=== PATIENT | female | born 1980 | race Caucasian/White ===

== ENCOUNTER → 2023-01-09 11:14 | Outpatient (BNVA) | payer MEDICAID, SELFPAY | PROVIDERS: PCP Nurse Practitioner; Visit Provider Nurse Practitioner | DX: Z79.899 Other long term (current) drug therapy (principal); F41.0 Panic disorder [episodic paroxysmal anxiety]; F33.1 Major depressive disorder, recurrent, moderate; F41.1 Generalized anxiety disorder | CPT/HCPCS: 80061; 83036; 84146 ==

== ENCOUNTER 2023-04-05 15:29 | Inpatient (IN) | payer MEDICAID, SELFPAY ==
[2023-04-05 15:33] VITALS: BP 145/90; PULSE 84; RESP 18; TEMP 36.7; O2SAT 97
--- NOTE | 2023-04-05 15:43 | W.ED.PSYCHS ---
HPI - Psych General: Chief Complaint: Psychiatric Symptoms Stated Complaint: 96 HR HLD Time Seen by Provider: 04/05/23 15:33 Source: patient and police Mode of arrival: other (PD) Limitations: no limitations History of Present Illness: This patient was transported by local police to the emergency department for 96-hour hold and mental health evaluation. Currently family members were concerned about her behavior over the past few days likely precipitated by her daughter's recent hospitalization for mental health evaluation as well. They provided affidavit's to the police regarding this patient's behavior and therefore she is transported to the emergency department. The patient freely admits that she is being treated for schizophrenia bipolar disorder other mental health diagnoses and states that she has been faithful to her prescribed medication. She states that she does not have active thoughts of harming yourself or others. complaint: feels depressed Associated psychiatric symptoms: depression Associated symptoms: Deny depression Review of Systems Const: Denies: fever(s) or chills Eyes: Denies: change in vision ENMT: Denies: throat pain, odynophagia, nasal discharge or nasal congestion Card: Denies: chest pain, palpitations or irregular heart rhythm Resp: Denies: dyspnea, productive cough or non-productive cough GI: Denies: abdominal pain, nausea or vomiting : Denies: flank pain, difficulty voiding or dysuria Musc: Denies: neck pain, back pain, extremity pain or extremity swelling Skin/Breast: Denies: rash Neuro: Denies: headache(s), numbness in extremities or weakness in extremities Psych: Denies: anxiety, depression, mood swings or panic attacks [facility] PFSH: Medical History On combination antipsychotic drug therapy Psychiatric care Physical Exam Narrative: EXAM NARRATIVE: She makes good eye contact is somewhat tearful answers questions in a goal-directed fluent fashion Const: COMMON NORMALS: patient oriented x3 and no limitations GENERAL APPEARANCE: cooperative and anxious HENMT: COMMON NORMALS: normocephalic, Normal nasal mucous membranes and turbinates present and moist oral mucous membranes HEAD & SCALP: normocephalic NOSE: Normal nasal mucous membranes and turbinates present Eye: COMMON NORMALS: Equal, round and reactive pupils present, EOMs intact bilaterally and conjunctivae normal CONJUNCTIVA: Yes conjunctivae normal PUPIL: Yes Equal, round and reactive pupils present Neck/C-Spine: COMMON NORMALS: full ROM Resp: COMMON NORMALS: normal respiratory effort and No use of accessory muscles EFFORT & INSPECTION: Yes able to speak in complete sentences Cardio: COMMON NORMALS: regular rate, regular rhythm and Peripheral pulses 2+ throughout RATE: regular rate RHYTHM: regular rhythm PERIPHERAL PULSES: Peripheral pulses 2+ throughout GI: COMMON NORMALS: Normal to inspection, nondistended, normoactive bowel sounds present : COMMON NORMALS: Yes no CVA tenderness BLADDER/KIDNEY EXAM: Yes no CVA tenderness Back/Pelvis: COMMON NORMALS: no CVA tenderness and thoracic and lumbar spine normal to inspection Extremity: COMMON NORMALS: normal to inspection, full ROM and no pedal edema Neuro: COMMON NORMALS: patient oriented x3, moves all extremities, no focal motor deficits and no sensory deficits noted CRANIAL NERVES: Yes CN normal except as noted Psych: COMMON NORMALS: mental status grossly normal and cooperative ATTITUDE: Yes calm ACTIVITY/MOTOR BEHAVIOR: Yes appropriate eye contact SPEECH: Yes rapid MOOD & AFFECT: Yes tearful THOUGHT PROCESS: disorganized THOUGHT CONTENT: Yes Normal thought content present ATTENTION/CONCENTRATION: Yes attention grossly intact MEMORY/COGNITION: Yes memory grossly intact INSIGHT: Fair insight present (Psych) JUDGEMENT: Fair judgement present (Psych) Skin: COMMON NORMALS: no rashes or lesions noted and turgor normal GENERAL SKIN EXAM: no rashes or lesions noted and turgor normal Course Vital Signs: Vital signs: Vital Signs Temperature 98.1 F 04/05/23 15:33 Pulse Rate 84 04/05/23 15:33 Respiratory Rate 18 04/05/23 15:33 Blood Pressure 145/90 04/05/23 15:33 Pulse Oximetry 97 04/05/23 15:33 Oxygen Delivery Me thod Room Air 04/05/23 15:33 MDM - Psych Medical Decision Making Patient with longstanding history of depression presented to the emergency department by police department with for 96-hour hold with associated affidavits from family members concerned about her behavior and concerned about possible suicidality. Patient was evaluated and she was adamant that she was not suicidal but will be evaluated per 96-hour hold Lab Data I reviewed the patient's lab results. 04/05/23 16:28 04/05/23 16:28 Laboratory Results WBC 6.79 10^3/uL (3.29-11.43) 04/05/23 16: RBC 4.38 10^6/uL (3.85-5.65) 04/05/23 16: Hgb 13.10 g/dL (11.27-16.99) 04/05/23 16: Hct 40.9 % (36-47) 04/05/23 16: MCV 93.4 fl (85-98) 04/05/23 16: MCH 29.9 pg (27-33) 04/05/23 16: MCHC 32.0 g/dL (30-55) 04/05/23 16: RDW 13.4 % (12.1-15.1) 04/05/23 16: Plt Count 255 10^3/cmm (157-399) 04/05/23 16: MPV 9.6 fL (7.4-10.4) 04/05/23 16: Neut % (Auto) 72.6 % 04/05/23 16: Lymph % (Auto) 20.8 % 04/05/23 16: Walsh % (Auto) 4.7 % 04/05/23 16: Eos % (Auto) 1.2 % 04/05/23 16: Baso % (Auto) 0.4 % 04/05/23 16: Neut # (Auto) 4.93 10^3/uL (1.8-7.7) 04/05/23 16: Lymph # (Auto) 1.4 10^3/uL (0.8-4.8) 04/05/23 16: Walsh # (Auto) 0.3 10^3/uL (0.2-0.9) 04/05/23 16: Eos # (Auto) 0.1 10^3/uL (0.0-0.8) 04/05/23 16: Baso # (Auto) 0.0 10^3/uL (0.0-0.1) 04/05/23 16: Nucleated RBC % (auto) 0 % 04/05/23: Nucleated RBCs # 0.0 /100WBC 04/05/23 16: Sodium 138 mmol/L (136-145) 04/05/23 16: Potassium 4.1 mmol/L (3.5-5.1) 04/05/23 16:28 Chloride 105 mmol/L (98-107) 04/05/23 16:28 Carbon Dioxide 23 mmol/L (22-29) 04/05/23 16:28 Anion Gap 14.1 (5-19) 04/05/23 16:28 BUN 14 mg/dL (6-20) 04/05/23 16:28 Creatinine 0.8 mg/dL (0.5-0.9) 04/05/23 16:28 GFR Calculation 79.0 mL/min (90-130) L 04/05/23 16:28 Glucose 100 mg/dL (65-115) 04/05/23 16:28 Calculated Osmolality 287 mOsm/kg (285-295) 04/05/23 16:28 Calcium 9.1 mg/dL (8.5-10.5) 04/05/23 16:28 Total Bilirubin 0.2 mg/dL (0.15-1.2) 04/05/23 16:28 AST 14 U/L (0-32) 04/05/23 16:28 ALT 10 U/L (0-33) 04/05/23 16:28 Alkaline Phosphatase 55 U/L (35-105) 04/05/23 16:28 Total Protein 7.4 g/dL (6.6-8.7) 04/05/23 16:28 Albumin 4.2 g/dL (3.5-5.2) 04/05/23 16:28 Globulin 3.2 g/dL (1.3-4.6) 04/05/23 16:28 Salicylates < 0.3 mg/dL (3-10) L 04/05/23 16:28 Acetaminophen < 5.0 ug/mL (10-30) L 04/05/23 16:28 No radiology studies performed this visit Discharge Plan Discharge Patient Disposition: Admitted As Inpatient Clinical Impression: Depression, Encounter for medical clearance for patient hold Condition: Stable Prescriptions: No Action topiramate 50 mg capsule,extended release 24hr 50 mg PO BID sumatriptan succinate 50 mg tablet See Rx Instructions PO .COMPLEX PRN (Reason: Headache) Rx Instructions: take 1 tab at onset of headache; if no relief may repeat 1 tab after at least 2 hrs; max = 4 tabs/24 hr PO buspirone 10 mg tablet 10 mg PO BID Qty: 60 1RF sertraline 100 mg tablet 200 mg PO DAILY Qty: 60 1RF olanzapine 20 mg tablet 20 mg PO QPM Referrals: Gely Bassett FNP-C [Primary Care Provider] - Coding Level of Care Code ED Peer Health Promoter for Laila Castro
[2023-04-05 17:10] LABS: Basophils % 0.4 %; Eosinophils # 0.1 10^3/uL (0.0-0.8); Eosinophils % 1.2 %; Hematocrit 40.9 % (36-47); Lymphocytes # 1.4 10^3/uL (0.8-4.8); Lymphocytes % 20.8 %; Mean Corpuscular Hemoglobin 29.9 pg (27-33); Mean Corpuscular Volume 93.4 fl (85-98); Mean Platelet Volume 9.6 fL (7.4-10.4); Monocytes # 0.3 10^3/uL (0.2-0.9); Monocytes % 4.7 %; Neutrophils # 4.93 10^3/uL (1.8-7.7); Neutrophils % 72.6 %; Nucleated Red Blood Cells % 0 %; Platelet Count 255 10^3/cmm (157-399); Red Blood Count 4.38 10^6/uL (3.85-5.65); Red Cell Distribution Width 13.4 % (12.1-15.1); White Blood Count 6.79 10^3/uL (3.29-11.43)
[2023-04-05 17:43] LABS: Alanine Aminotransferase 10 U/L (0-33); Albumin Level 4.2 g/dL (3.5-5.2); Alkaline Phosphatase 55 U/L (35-105); Anion Gap 14.1 (5-19); Aspartate Amino Transferase 14 U/L (0-32); Blood Urea Nitrogen 14 mg/dL (6-20); Calcium 9.1 mg/dL (8.5-10.5); Carbon Dioxide 23 mmol/L (22-29); Chloride 105 mmol/L (98-107); Globulin 3.2 g/dL (1.3-4.6); Glucose 100 mg/dL (65-115); Osmolality Calculated 287 mOsm/kg (285-295); Potassium 4.1 mmol/L (3.5-5.1); Sodium 138 mmol/L (136-145); Total Bilirubin 0.2 mg/dL (0.15-1.2); Total Protein 7.4 g/dL (6.6-8.7)
[2023-04-05] MEDS: nicotine 21 mg Patch 1 PATCH TRANSDERMA (17:44)
[2023-04-05 17:57] LABS: Acetaminophen < 5.0 ug/mL (10-30); Salicylate < 0.3 mg/dL (3-10)
[2023-04-05 17:59] VITALS: BP 138/93; PULSE 85; RESP 18; TEMP 36.6; O2SAT 99
--- NOTE | 2023-04-05 18:59 | PC.NURSE ---
96 hr rights reviewed with patient with assistance gemma FLORES founder and chief executive officer @[phone]. Patient verbalized understanding. Patient copy left @bedside with patient. No verbalized needs at this time.
[2023-04-05] MEDS: OLANZapine 5 mg ODT PO (20:29)
--- NOTE | 2023-04-05 21:08 | PC.ADMIT ---
1997 CR [id number] Admission Note: The patient,Elsy Eugene,43 y/o, was given written information regarding hospital policies, unit procedures and contact persons. Patient's smoking status: . Vital Signs - 8 hr 04/05/23 15:33 04/05/23 17:59 04/05/23 21:01 Temperature 98.1 F 97.9 F Pulse Rate 84 85 Respiratory Rate 18 18 Blood Pressure 145/90 138/93 Pulse Oximetry 97 99 Oxygen Delivery Method Room Air Room Air Room Air ADMITTED FROM ER VIA WHEELCHAIR, SECURITY AND ER STAFF AT 1999. PT IS ON A 96 HOUR HOLD THAT ENDS ON 04/11/23 AT 1529. PT STATES SHE IS HEAR BECAUSE MY COUSIN CALLED MY FAMILY AND SAID I WAS GOING TO HURT MYSELF WHICH IS ALL LIES. PT IS VERY TALKATIVE AND RAMBLING SPEECH IN EXCESS. VERY FOCUSED ON SELF. DENIES SI/HI AT THIS TIME. DOES ENDORSE IN THE PAST THAT SHE SEES THINGS THAT AREN'T THERE I GUESS AND HEAR VOICES. PT DECLINES [facility] TODAY. PT REPORTS SHE SHES [facility] ADMIN AT [facility]. MEDICATIONS RECONCILED. REPORTS DEPRESSION AND ANXIETY. RATES ANXIETY 7/10 AND DEPRESSION 8/10. FLOAT TENDER ADMINISTERED ZYDIS 5 MG ORDERED FOR ANXIETY. VERIFIES COMPAZINE HER ONLY ALLERGY. DECLINES FLU VACCINE. PT WAS ORIENTATED TO UNIT, WANDED AND DRESSED OUT. NO SKIN ISSUES WERE OBSERVED. ORIENTATED TO UNIT AND SAFETY RULES WHILE HERE IN THE UNIT. VERBALIZES UNDERSTANDING. ALL QUESTIONS ANSWERED AND SUPPORT WAS VOICED. DENIES PAIN.
[2023-04-05] MEDS: ibuprofen 600 mg Tablet PO (21:20)
[2023-04-06] MEDS: hyDROXYzine 25 mg Capsule 50 MG PO ×3 (01:41→20:52)
[2023-04-06] MEDS: OLANZapine 5 mg ODT PO (01:41)
[2023-04-06] MEDS: trazodone 50 mg Tablet PO (01:41)
[2023-04-06 06:00] VITALS: RESP 16
[2023-04-06 08:00] VITALS: BP 133/99; PULSE 107; RESP 18; TEMP 36.9; O2SAT 100
[2023-04-06] MEDS: BuSPIRONE 10 mg Tablet PO ×2 (08:26→20:51)
[2023-04-06] MEDS: topiramate 25 mg Tablet 50 MG PO ×2 (08:27→20:51)
[2023-04-06] MEDS: sertraline 100 mg Tablet 200 MG PO (08:27)
[2023-04-06] MEDS: acetaminophen 325 mg Tablet 650 MG PO (08:29)
[2023-04-06] MEDS: nicotine 21 mg Patch 1 PATCH TRANSDERMA (08:30)
[2023-04-06 12:14] LABS: HCG Qualitative Urine. Negative (Negative)
[2023-04-06 12:24] LABS: Amphetamines Screen Urine Negative (Negative); Barbiturates Screen Urine Negative (Negative); Benzodiazepines Screen Urine Negative (Negative); Cocaine Screen Urine Negative (Negative); Opiate Screen Urine Negative (Negative); PCP Screen Urine Negative (Negative); THC Screen Urine Negative (Negative)
[2023-04-06 14:00] VITALS: BP 124/74; PULSE 82; RESP 18; TEMP 36.8; O2SAT 96
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
[2023-04-06] MEDS: ibuprofen 600 mg Tablet PO (15:12)
[2023-04-06] MEDS: OLANZapine 10 mg TABLET 20 MG PO (20:51)
[2023-04-06] MEDS: nicotine 2 mg Gum BUCCAL (21:10)
[2023-04-06 22:00] VITALS: BP 141/114; PULSE 113; RESP 18; TEMP 36.5; O2SAT 97
[2023-04-07 06:00] VITALS: BP 135/86; PULSE 107; RESP 18; TEMP 36.6; O2SAT 98
[2023-04-07] MEDS: nicotine 2 mg Gum BUCCAL (06:31)
[2023-04-07] MEDS: ibuprofen 600 mg Tablet PO ×2 (08:21→15:29)
[2023-04-07] MEDS: sertraline 100 mg Tablet 200 MG PO (08:21)
[2023-04-07] MEDS: topiramate 25 mg Tablet 50 MG PO ×2 (08:21→21:14)
[2023-04-07] MEDS: BuSPIRONE 10 mg Tablet PO ×2 (08:21→21:13)
[2023-04-07] MEDS: nicotine 21 mg Patch 1 PATCH TRANSDERMA (08:22)
--- NOTE | 2023-04-07 12:21 | P.NPUPN_ITS ---
Subjective NPU 2 Subjective: 43-year-old female with a history of dean izoaffective disorder depressed type admitted with suicidal ideation and worsening depression. Patient had reported considerable worry regarding her daughter who was currently receiving psychiatric treatment and locked facility. She reported that she had slept better. She had continued to endorse depression and reported that she was motivated to try to get help for her depression. She had reported that she had not been receiving outpatient psychotherapy as of yet. She reported a history of numerous trials on medications. She had endorsed low energy and struggles with concentration. She reported that she had felt that the buspirone had been helpful for her anxiety as well. She had reported frequent panic attacks but reported that most of the time they were associated with triggers. Mental Status Exam 2 MSE Comments: Is casually dressed white female with her stated age, slightly overweight with normal gait. Her hygiene was fair. There was no evidence of any abnormal involuntary motor movements tics or tremors appreciated. She was alert and oriented to person place time and situation. Her speech was normal in regards to rate rhythm and prosody. Her eye contact was fair. There was evidence of mild to moderate psychomotor retardation. Her mood was described as down. Her affect appeared restricted in range and mood congruent. Her thought process was linear, logical and goal-directed. Her thought content showed no evidence of active homicidal ideation with no suicidal ideation reported today. She denied any auditory or visual hallucinations. There was no evidence of any delusional thinking. She did not appear to be responding internal stimuli. Her attention span appeared fair. Her insight appeared limited. Her judgment appeared poor. Her impulse control appeared poor. Vitals/I&O/Wt Last Vital Signs Temp 97.8 F 04/07/23 06:00 Pulse 107 H 04/07/23 06:00 Resp 18 04/07/23 06:00 BP 135/86 04/07/23 06:00 Pulse Ox 98 04/07/23 06:00 O2 Del Method Room Air 04/07/23 06:00 Weight last 48 hrs Weight 106.141 kg Data NPU 04/05/23 16:28 04/05/23 16:28 A&P Assessment and plan (1) Schizoaffective disorder, depressive type: (2) Suicidal ideation: (3) Depressed mood: Plan 43-year-old white female an extended history of mental health issues with multiple inpatient hospitalizations admitted on a 96-hour hold with concerns about depression and suicidal statements with a history of schizoaffective disorder depressed type. 1. Encourage individual, group and milieu therapy. 2. Recommend sober living treatment at the highest level of care to which the patient is willing to commit. 3. Continue q-15 minute checks for safety.? 4.? Restart current medications with addition of wellbutrin xl 150mg in am and continuing Zyprexa 20mg at night along with buspar 10mg bid, and zoloft 200mg daily. Involuntary Hold Information 2 96 Hour Hold: 96 Hour Involuntary Admission: Yes 96 Hour Hold Ending Date: 04/11/23 96 Hour Hold Ending Time: 15:29 Attestations NPU 2 Medical Necessity Statement*: Patient hospitalization is medically necessary and deemed to be the clinically appropriate decision at this time. The patient will be started on medications and medications will be adjusted as clinically indicated. The patient likely length of stay is 2-3 days. Coding Level of Care Code Acute Code for [facility] Diagnoses Schizoaffective disorder, depressive type F25.1 Suicidal ideation R45.851 Depressed mood R45.89
[2023-04-07] MEDS: buPROPion XL (24 HR) 150 mg Tablet PO (12:40)
[2023-04-07 13:58] VITALS: BP 121/79; PULSE 117; RESP 16; TEMP 36.3; O2SAT 99
[2023-04-07 20:34] VITALS: BP 139/75; PULSE 84; RESP 18; TEMP 36.3; O2SAT 99
[2023-04-07] MEDS: OLANZapine 10 mg TABLET 20 MG PO (21:14)
[2023-04-07] MEDS: acetaminophen 325 mg Tablet 650 MG PO (23:14)
[2023-04-08 06:00] VITALS: BP 115/76; PULSE 96; RESP 16; TEMP 36.3; O2SAT 96
[2023-04-08] MEDS: sertraline 100 mg Tablet 200 MG PO (09:11)
[2023-04-08] MEDS: BuSPIRONE 10 mg Tablet PO (09:11)
[2023-04-08] MEDS: buPROPion XL (24 HR) 150 mg Tablet PO (09:11)
[2023-04-08] MEDS: topiramate 25 mg Tablet 50 MG PO (09:11)
[2023-04-08] MEDS: acetaminophen 325 mg Tablet 650 MG PO (11:43)
[2023-04-08] MEDS: nicotine 21 mg Patch 1 PATCH TRANSDERMA (11:44)
[2023-04-08] MEDS: ibuprofen 600 mg Tablet PO (13:16)
[2023-04-08 14:00] VITALS: BP 139/88; PULSE 88; RESP 13; TEMP 36.8; O2SAT 100
[2023-04-08] MEDS: hyDROXYzine 25 mg Capsule 50 MG PO (15:43)
--- NOTE | 2023-04-08 16:20 | P.NPUPN_ITS ---
Subjective NPU 2 Subjective: 43-year-old female with a history of dean izoaffective disorder depressed type admitted with suicidal ideation and worsening depression. Patient had reported considerable worry regarding her daughter who was currently receiving psychiatric treatment and locked facility. She reported that she had slept better. She had continued to endorse depression and reported that she was motivated to try to get help for her depression. She had reported that she had not been receiving outpatient psychotherapy as of yet. She reported a history of numerous trials on medications. She had endorsed low energy and struggles with concentration. She reported that she had felt that the buspirone had been helpful for her anxiety as well. She had reported frequent panic attacks but reported that most of the time they were associated with triggers. Vitals/I&O/Wt Last Vital Signs Temp 98.3 F 04/08/23 14:00 Pulse 88 04/08/23 14:00 Resp 13 04/08/23 14:00 BP 139/88 04/08/23 14:00 Pulse Ox 100 04/08/23 14:00 O2 Del Method Room Air 04/08/23 06:00 Weight last 48 hrs Weight 106.141 kg Data NPU 04/05/23 16:28 04/05/23 16:28 Involuntary Hold Information 2 96 Hour Hold: 96 Hour Involuntary Admission: Yes 96 Hour Hold Ending Date: 04/11/23 96 Hour Hold Ending Time: 15:29 Coding Level of Care Code Acute Code for [facility]
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
[2023-04-08 16:55] VITALS: BP 139/88; PULSE 88; RESP 13; TEMP 36.8; O2SAT 100
== END 2023-04-08 18:35 | disposition home or self-care (01) | DRG 885 ==
LOC: ER 18:02 → NP 18:04
PROVIDERS: Admitting Provider Psychiatry & Neurology Psychiatry; Emergency Provider Emergency Medicine; PCP Nurse Practitioner; Visit Provider Psychiatry & Neurology Psychiatry
DX: F25.1 Schizoaffective disorder, depressive type (principal); R45.851 Suicidal ideations; Z91.51 Personal history of suicidal behavior; F17.210 Nicotine dependence, cigarettes, uncomplicated; Z62.810 Personal history of physical and sexual abuse in childhood; Z63.79 Other stressful life events affecting family and household
CPT/HCPCS: 36415; 80053; 80306; 80307; 81025; 85025; 97150; 97165; 99285

== ENCOUNTER → 2023-07-09 11:20 | Outpatient (BNVA) | payer OTHER, SELFPAY | PROVIDERS: PCP Nurse Practitioner; Visit Provider Nurse Practitioner | DX: F41.1 Generalized anxiety disorder (principal); F25.1 Schizoaffective disorder, depressive type; Z79.899 Other long term (current) drug therapy | CPT/HCPCS: 80061; 83036 ==

== ENCOUNTER 2023-09-24 13:24 | Outpatient (CLI) | payer MEDICAID, SELFPAY ==
[2023-07-30 14:40] VITALS: BP 120/75; BMI 38.9
[2023-09-02 10:04] VITALS: BP 120/75; BMI 38.9
--- NOTE | 2023-09-24 13:20 | MM_ITS ---
WS: [id number] BILATERAL 3D TOMOSYNTHESIS DIGITAL SCREENING MAMMOGRAPHY WITH CAD CLINICAL INFORMATION: SCREENING HISTORY: Screening mammogram. No current complaints. COMPARISON: Baseline TECHNIQUE: Bilateral CC and MLO views. FINDINGS: The breasts are composed of heterogeneous fibroglandular density tissue, which can limit the detectio n of small underlying mass lesions. No suspicious mass, asymmetry, calcifications, or architectural d istortion. No evidence of malignancy. A few tiny incidental punctate calcifications. Incidental axill conchis tail lymph nodes. Dense heterogeneous tissue RIGHT greater than LEFT anterior breast. MM/[place] [id number] IMPRESSION: BI-RADS: 2-Benign FOLLOW UP: 1 Year Follow-up Recommend return to annual screening mammography.
== END 2023-09-24 13:25 | disposition home or self-care (01) ==
LOC: MOBLMAM 13:52
PROVIDERS: PCP Physician Assistant; Visit Provider Physician Assistant
DX: Z12.31 Encounter for screening mammogram for malignant neoplasm of breast (principal)
CPT/HCPCS: 77063; 77067

== ENCOUNTER → 2024-07-14 08:54 | Outpatient (BNVA) | payer OTHER, SELFPAY ==
[2023-11-22 13:12] VITALS: BP 120/75; BMI 38.9
== END ==
PROVIDERS: PCP Physician Assistant; Visit Provider Nurse Practitioner
DX: F41.1 Generalized anxiety disorder (principal); F33.1 Major depressive disorder, recurrent, moderate; F25.1 Schizoaffective disorder, depressive type; Z79.899 Other long term (current) drug therapy
CPT/HCPCS: 80061; 83036

== ENCOUNTER 2024-10-29 11:41 | Outpatient (CLI) | payer MEDICAID, SELFPAY ==
[2024-07-17 15:32] VITALS: BP 134/93
[2024-07-17 15:34] VITALS: BMI 38.8
--- NOTE | 2024-10-29 11:40 | MM_ITS ---
WS: [id number] SCREENING DIGITAL BREAST TOMOSYNTHESIS MAMMOGRAM WITH CAD HISTORY: SCREENING COMPARISON: 09/24/2023 Bilateral CC and MLO with tomosynthesis and synthetic mammography submitted. Computer aided detection analyzed. Breast composition: The breasts are heterogeneously dense, which may obscure small masses. Partially obscured ovoid mass LEFT breast at 3:00 at a mid depth. This mass was present on the prior study and partially obscured. Mass measures 8 x 5 x 10 mm. No additional masses or suspicious grouping of calcifications. MM/MM [facility] tomosynthesis [id number] IMPRESSION: BI-RADS: 0 - Incomplete: Need additional imaging evaluation FOLLOW UP: Need Additional Imaging Recommendation: LEFT breast ultrasound, limited, 2-4 o'clock LEFT breast.
== END 2024-10-29 11:42 | disposition home or self-care (01) ==
LOC: MOBLMAM 11:43
PROVIDERS: PCP Physician Assistant; Visit Provider Physician Assistant
DX: Z12.31 Encounter for screening mammogram for malignant neoplasm of breast (principal); R92.333 Mammographic heterogeneous density, bilateral breasts; N63.23 Unspecified lump in the left breast, lower outer quadrant
CPT/HCPCS: 77063; 77067

== ENCOUNTER 2024-12-07 09:46 | Outpatient (CLI) | payer MEDICAID, SELFPAY ==
[2024-07-17 15:32] VITALS: BP 134/93
[2024-07-17 15:34] VITALS: BMI 38.8
--- NOTE | 2024-12-07 09:53 | MM_ITS ---
WS: [id number] ADDITIONAL VIEWS LEFT MAMMOGRAM WITH DIGITAL BREAST TOMOSYNTHESIS. LEFT breast ultrasound, limited HISTORY: ABNORMAL MAMMOGRAM COMPARISON: 10/29/2024, 09/24/2023 Spot compression views LEFT breast in CC, MLO projections and true ML submitted with digital breast tomosynthesis and SM. Breast composition: The breasts are heterogeneously dense, which may obscure small masses. Ovoid mass identified mid retroareolar region on the lateral projection. This appears to be in the lateral breast. LEFT breast ultrasound, limited. Ovoid hypoechoic mass LEFT breast 2:00 measures 1.0 x 0.8 x 0.4 cm. This corresponds to the abnormality seen on the recent mammogram. There is no through transmission. There are low-level echoes within this mass. Favor this is probably a fibroadenoma. There is an additional very small cyst at 4:00 ermias uring 4 x 3 x 2 mm. MM/MM diag LT tomosynthesis [id number] IMPRESSION: BI-RADS: 3 - Probably Benign FOLLOW UP: 6 Month Follow-up Recommend follow-up ultrasound in 6 months. Ovoid mass LEFT breast at 2:00 is p robably a fibroadenoma. This mass was probably present in 2023 but obscured by the adjacent fibroglandular tissue.
== END 2024-12-07 09:47 | disposition home or self-care (01) ==
LOC: RAD 09:47
PROVIDERS: PCP Physician Assistant; Visit Provider Physician Assistant
DX: R92.8 Other abnormal and inconclusive findings on diagnostic imaging of breast (principal); R92.332 Mammographic heterogeneous density, left breast; N63.21 Unspecified lump in the left breast, upper outer quadrant; N63.23 Unspecified lump in the left breast, lower outer quadrant
CPT/HCPCS: 76642; 77061; G0279